=== PATIENT | female | born 1990 | race Caucasian/White ===

== ENCOUNTER 2020-04-27 05:56 | Inpatient (IN) | payer BC ==
[~2020-04-27] VITALS: Ht 157.5 cm; Wt 79.0 kg
[2020-04-27 06:29] VITALS: BP 134/81
[2020-04-27] MEDS ORDERED: ACYC-114 PO (06:38)
[2020-04-27] MEDS ORDERED: PREN-3 PO (06:38)
[2020-04-27] MEDS ORDERED: MAGN400T36 PO (06:39)
[2020-04-27] MEDS ORDERED: NEWBORN KIT ONE (06:55)
[2020-04-27] MEDS ORDERED: LIDOCAINE 1%, 20ML ONE (06:55)
[2020-04-27] MEDS ORDERED: OXYTOCIN 30U/ 0.9% NaCL 500ML 500 ML ONE ×2 (06:55→22:54)
[2020-04-27] MEDS ORDERED: MISOPROSTOL 200 MCG TABLET ONE (06:55)
[2020-04-27] MEDS ORDERED: OXYTOCIN 30U/ 0.9% NaCL 500ML 500 ML IV ONE (07:08)
[2020-04-27] MEDS ORDERED: D5%-LACTATED RINGERS 1,000 ML IV SCH (07:08)
[2020-04-27] MEDS ORDERED: FENTANYL PF 100 MCG/2ML IVPush PRN (07:30)
[2020-04-27] MEDS ORDERED: TERBUTALINE 1 MG/ML, 1ML IVPush PRN (07:30)
[2020-04-27] MEDS ORDERED: CALCIUM CARBONATE 500 MG TAB.CHEW PO PRN (07:30)
[2020-04-27] MEDS ORDERED: ONDANSETRON 2MG/ML, 2ML IVPush PRN (07:30)
[2020-04-27] MEDS ORDERED: FENTANYL PF 100 MCG/2ML IV PRN (07:30)
[2020-04-27] MEDS ORDERED: SODIUM CHLORIDE FLUSH 10ML SYR IVF PRN (07:30)
[2020-04-27] MEDS ORDERED: TERBUTALINE 1 MG/ML, 1ML SQ PRN (07:30)
[2020-04-27 07:41] LABS: BASOPHILS # (AUTO) 0.04 x10^3/uL (0-0.1); BASOPHILS % (AUTO) 0 % (0-1); EOSINOPHILS # (AUTO) 0.04 x10^3/uL (0-0.4); EOSINOPHILS % (AUTO) 0 % (1-7); LYMPHOCYTES % (AUTO) 16 % (22-44); MD NO; MEAN CORPUSCULAR HEMOGLOBIN 28.4 pg (27.0-34.8); MEAN CORPUSCULAR HGB CONC 32.9 g/dL (32.4-35.8); MEAN CORPUSCULAR VOLUME 86.3 fL (80-100); MEAN PLATELET VOLUME 8.1 fL (7.4-10.4); MONOCYTES # (AUTO) 1.11 x10^3/uL (0.2-0.8); MONOCYTES % (AUTO) 10 % (2-9); NEUTROPHILS # (AUTO) 7.79 x10^3/uL (1.8-6.8); NEUTROPHILS % (AUTO) 73 % (42-75); PLATELET COUNT 270 x10^3/uL (130-400); RED BLOOD COUNT 4.46 x10^6/uL (3.82-5.3); RED CELL DISTRIBUTION WIDTH 14.4 % (9.6-15.2)
[2020-04-27] MEDS: LACTATED RINGERS 1,000 ML IV SCH ×3 (08:18→23:37)
[2020-04-27] MEDS ORDERED: OXYTOCIN 30U/ 0.9% NaCL 500ML 500 ML IV PRN (09:18)
[2020-04-27] MEDS ORDERED: FENTANYL PF 100 MCG/2ML ONE (13:57)
[2020-04-27] MEDS ORDERED: ONDANSETRON 2MG/ML, 2ML ONE (13:58)
[2020-04-27] MEDS ORDERED: BUPIVACAINE 0.25% ONE ×2 (15:05→15:07)
[2020-04-27] MEDS ORDERED: FENTANYL/BUPIV./NS/PF 250 ML EPIDCONT ONE ×2 (15:06→15:07)
[2020-04-27] MEDS ORDERED: LIDOCAINE/PF 1.5%-EPI 1:200K, 30ML ONE (15:07)
[2020-04-27 19:25] VITALS: BP 127/77
[2020-04-27] MEDS ORDERED: ACETAMINOPHEN 325 MG TABLET ONE (21:15)
[2020-04-27] MEDS ORDERED: IBUPROFEN 600 MG TABLET ONE (22:54)
[2020-04-27] MEDS: IBUPROFEN 600 MG TABLET PO PRN (22:55)
[2020-04-27] MEDS: OXYTOCIN 30U/ 0.9% NaCL 500ML 500 ML IV SCH (22:56)
[2020-04-27] MEDS ORDERED: METHYLERGONOVINE 0.2 MG/ML IM PRN (23:00)
[2020-04-27] MEDS ORDERED: OXYcodone/APAP 5/325MG TABLET PO PRN (23:00)
[2020-04-27] MEDS ORDERED: OXYcodone IR 5MG TABLET PO PRN (23:00)
[2020-04-27] MEDS ORDERED: MISOPROSTOL 200 MCG TABLET PR PRN (23:00)
[2020-04-27] MEDS ORDERED: ACETAMINOPHEN 325 MG TABLET PO PRN (23:00)
[2020-04-27] MEDS ORDERED: CARBOPROST TROMETHAMINE 250 MCG/ML, 1ML IM PRN (23:00)
[2020-04-28 01:45] VITALS: BP 113/77
[2020-04-28 05:45] VITALS: BP 123/71
[2020-04-28 06:29] LABS: MEAN CORPUSCULAR HEMOGLOBIN 28.7 pg (27.0-34.8); MEAN CORPUSCULAR HGB CONC 33.3 g/dL (32.4-35.8); MEAN CORPUSCULAR VOLUME 86.3 fL (80-100); MEAN PLATELET VOLUME 7.8 fL (7.4-10.4); PLATELET COUNT 248 x10^3/uL (130-400); RED BLOOD COUNT 3.95 x10^6/uL (3.82-5.3); RED CELL DISTRIBUTION WIDTH 15.2 % (9.6-15.2)
[2020-04-28 06:48] LABS: BASOPHILS # (AUTO) 0.03 x10^3/uL (0-0.1); BASOPHILS % (AUTO) 0 % (0-1); EOSINOPHILS # (AUTO) 0.24 x10^3/uL (0-0.4); EOSINOPHILS % (AUTO) 1 % (1-7); LYMPHOCYTES # (AUTO) 1.48 x10^3/uL (1-3.4); LYMPHOCYTES % (AUTO) 8 % (22-44); MD SCAN; MONOCYTES # (AUTO) 1.44 x10^3/uL (0.2-0.8); MONOCYTES % (AUTO) 7 % (2-9); NEUTROPHILS # (AUTO) 16.42 x10^3/uL (1.8-6.8); NEUTROPHILS % (AUTO) 84 % (42-75)
[2020-04-28 08:00] VITALS: BP 120/83
[2020-04-28] MEDS: DOCUSATE 100 MG CAPSULE PO PRN ×2 (08:00→20:12)
[2020-04-28] MEDS: SIMETHICONE 80 MG CHEW TAB PO PRN (08:00)
[2020-04-28] MEDS: PRENATAL VIT/IRON/FA 1 EACH TABLET PO SCH (08:01)
[2020-04-28] MEDS: IBUPROFEN 600 MG TABLET PO PRN ×3 (08:10→20:12)
[2020-04-28] MEDS: OXYTOCIN 30U/ 0.9% NaCL 500ML 500 ML IV SCH ×2 (08:45→18:45)
[2020-04-28 14:18] VITALS: BP 107/69
[2020-04-28 17:45] VITALS: BP 107/79
[2020-04-28 20:20] VITALS: BP 113/74
[2020-04-29] MEDS: OXYTOCIN 30U/ 0.9% NaCL 500ML 500 ML IV SCH (04:45)
[2020-04-29] MEDS: IBUPROFEN 600 MG TABLET PO PRN (05:38)
[2020-04-29 08:00] VITALS: BP 109/72
[2020-04-29] MEDS: SIMETHICONE 80 MG CHEW TAB PO PRN (08:16)
[2020-04-29] MEDS: PRENATAL VIT/IRON/FA 1 EACH TABLET PO SCH (08:16)
[2020-04-29] MEDS: DOCUSATE 100 MG CAPSULE PO PRN (08:16)
[2020-04-29] MEDS ORDERED: IBUP-1222 PO (09:41)
[2020-04-29] MEDS ORDERED: DOCU-131 PO (09:43)
== END 2020-04-29 10:15 | disposition home or self-care (01) | DRG 807 ==
LOC: MERGE 05:56 → LDOP 05:56 → LDIP 07:49 → 2NW 04-28 01:25
PROVIDERS: ADMIT Obstetrics & Gynecology Maternal & Fetal Medicine; ATTEND Obstetrics & Gynecology Maternal & Fetal Medicine
PROC: 0KQM0ZZ Repair Perineum Muscle, Open Approach (ICD-10-PCS; principal; 2020-04-27)
PROC: 10E0XZZ Delivery of Products of Conception, External Approach (ICD-10-PCS; 2020-04-27)
PROC: 3E0R3BZ Introduction of Anesthetic Agent into Spinal Canal, Percutaneous Approach (ICD-10-PCS; 2020-04-27)
PROC: 00HU33Z Insertion of Infusion Device into Spinal Canal, Percutaneous Approach (ICD-10-PCS; 2020-04-27)
DX: O66.0 Obstructed labor due to shoulder dystocia (principal); Z37.0 Single live birth; O69.1XX0 Labor and delivery complicated by cord around neck, with compression, not applicable or unspecified; O70.1 Second degree perineal laceration during delivery; O42.92 Full-term premature rupture of membranes, unspecified as to length of time between rupture and onset of labor; Z20.828 Contact with and (suspected) exposure to other viral communicable diseases; Z3A.39 39 weeks gestation of pregnancy
CPT/HCPCS: 36415; J3490; J7121; 82803; 85025; 86592; 86850; 86900; 87635; 89060; G0378; J2405; J3010; J2590; J7120; Q0114